=== PATIENT | female | born 1985 | race Caucasian/White ===

== ENCOUNTER 2019-01-02 19:22 | Emergency (ER) | payer OTHER ==
[~2019-01-02] VITALS: Ht 157.5 cm; Wt 67.4 kg
[~2019-01-02 19:22] MED LIST: DIPH25CA61 PO; IBUP-1223 PO; NONE PER PT; OXYC-302 PO
[2019-01-02 19:24] VITALS: BP 112/75
--- NOTE | 2019-01-02 19:50 | NUR ---
PT PRESENTING TO ER FOR RIGHT SIDE NUMBNESS TODAY THAT HAS NOW COMPLETELY RESOLVED, [facility] NEG ALL NEURO INTACT. MD TO BEDSIDE FOR ASSESSMENT. FAMILY AT BEDSIDE. CALL LIGHT WITHIN REACH. AWAITING LAB RESULTS AT THIS TIME
[2019-01-02 20:00] LABS: BASOPHILS # (AUTO) 0.04 x10^3/uL (0-0.1); BASOPHILS % (AUTO) 1 % (0-1); EOSINOPHILS # (AUTO) 0.23 x10^3/uL (0-0.4); EOSINOPHILS % (AUTO) 3 % (1-7); LYMPHOCYTES % (AUTO) 43 % (22-44); MD NO; MEAN CORPUSCULAR HEMOGLOBIN 28.4 pg (27.0-34.8); MEAN CORPUSCULAR HGB CONC 33.7 g/dL (32.4-35.8); MEAN CORPUSCULAR VOLUME 84.4 fL (80-100); MEAN PLATELET VOLUME 8.9 fL (7.4-10.4); MONOCYTES # (AUTO) 0.61 x10^3/uL (0.2-0.8); MONOCYTES % (AUTO) 9 % (2-9); NEUTROPHILS # (AUTO) 3.24 x10^3/uL (1.8-6.8); NEUTROPHILS % (AUTO) 45 % (42-75); PLATELET COUNT 338 x10^3/uL (130-400); RED BLOOD COUNT 4.56 x10^6/uL (3.82-5.3); RED CELL DISTRIBUTION WIDTH 15.5 % (9.6-15.2)
[2019-01-02 20:07] LABS: ALBUMIN 4.3 g/dL (3.4-5.0); ANION GAP 8 mmol/L (5-15); CALCIUM 8.7 mg/dL (8.5-10.1); CHLORIDE 107 mmol/L (98-107); CREATININE 0.94 mg/dL (0.55-1.02)
--- NOTE | 2019-01-02 20:13 | NUR ---
ALL RESULTS BACK AT THIS TIME, CHART UP FOR RECHECK
== END 2019-01-02 20:49 | disposition home or self-care (01) ==
LOC: ED 20:03
DX: R20.8 Other disturbances of skin sensation (principal); R20.2 Paresthesia of skin; G43.909 Migraine, unspecified, not intractable, without status migrainosus
CPT/HCPCS: 36415; 80048; 82040; 85025; 99283